=== PATIENT | female | born 1960 | race Caucasian/White ===

== ENCOUNTER 2019-01-08 10:50 | Outpatient (CLI) | payer OTHER | END 2019-01-08 23:59 | disposition home or self-care (01) | LOC: CFH 10:50 | PROVIDERS: ATTEND Orthopaedic Surgery | DX: S83.231A Complex tear of medial meniscus, current injury, right knee, initial encounter (principal); S83.271A Complex tear of lateral meniscus, current injury, right knee, initial encounter; M22.41 Chondromalacia patellae, right knee; X58.XXXA Exposure to other specified factors, initial encounter; Y93.89 Activity, other specified; Y92.89 Other specified places as the place of occurrence of the external cause; Y99.8 Other external cause status ==

== ENCOUNTER 2020-09-28 20:48 | Emergency (ER) | payer OTHER ==
[~2020-09-28] VITALS: Ht 167.6 cm; Wt 75.3 kg
[~2020-09-28 20:48] MED LIST: LEVO100T5 PO
[2020-09-28] MEDS ORDERED: SODIUM CHLORIDE 0.9% 1,000ML IVBOLUS ONE (21:00)
--- NOTE | 2020-09-28 21:14 | NUR ---
PT BIB EMS FROM HOME WHERE SHE WAS FOUND PASSED OUT AROUND APPROX 10-12 WINE BOTTLES. PT HAD NO MEDICATIONS AROUND HER THAT WERE NOTED BUT APPEARS TO HAVE TAKEN SOME UNKNOWN SUBSTANCE. PUPILS DILATED AND SLUGGISH 6-7. PT HAS HX OF SI AND FAMILY STATES ONE SA YEARS PRIOR. PT PLACED ON SPO2/BP/ECG MONITORING, UA AND LABS OBTAINED AND SENT. HEIDY ERP AT BS FOR EVAL AND POC. FAMILY AT BS. PT BED IN LOWEST, RAILS ENGAGED, CALL LIGHT ON LAP, WCTM.
[2020-09-28 21:15] LABS: BASOPHILS % (AUTO) 0 % (0-1); EOSINOPHILS % (AUTO) 0 % (1-7); LYMPHOCYTES % (AUTO) 41 % (22-44); MEAN CORPUSCULAR HEMOGLOBIN 32.8 pg (27.0-34.8); MEAN PLATELET VOLUME 6.8 fL (7.4-10.4); MONOCYTES % (AUTO) 6 % (2-9); NEUTROPHILS % (AUTO) 53 % (42-75); PLATELET COUNT 385 x10^3/uL (130-400); RED BLOOD COUNT 4.96 x10^6/uL (3.82-5.3); RED CELL DISTRIBUTION WIDTH 12.8 % (9.6-15.2)
[2020-09-28 21:16] LABS: MD NO
[2020-09-28 21:27] LABS: MICROSCOPIC NOT IND
[2020-09-28 21:37] LABS: FREE T4 (FREE THYROXINE) 0.92 ng/dL (0.76-1.46)
[2020-09-28 21:58] LABS: SALICYLATE LEVEL < 1.7 mg/dL (2.8-20.0)
[2020-09-28 22:01] LABS: AMPHETAMINE SCREEN, URINE Negative (Negative); BARBITURATE SCREEN, URINE Negative (Negative); BENZODIAZEPINE SCREEN, URINE Negative (Negative); CANNABINOID SCREEN, URINE Negative (Negative); COCAINE SCREEN, URINE Negative (Negative); METHADONE SCREEN, URINE Negative (Negative); OPIATE SCREEN, URINE Negative (Negative)
[2020-09-28 22:06] LABS: ALANINE AMINOTRANSFERASE 32 U/L (12-78); ALBUMIN 4.1 g/dL (3.4-5.0); ANION GAP 14 mmol/L (5-15); CALCIUM 8.8 mg/dL (8.5-10.1); CHLORIDE 107 mmol/L (98-107); CREATININE 0.78 mg/dL (0.55-1.02)
[2020-09-28 22:08] LABS: ALKALINE PHOSPHATASE 80 U/L (45-117); BILIRUBIN,TOTAL 0.2 mg/dL (0.2-1.0)
--- NOTE | 2020-09-28 22:21 | NUR ---
FAMILY CONTACT INFO: [phone] DAUGHTER [phone]
[2020-09-28] MEDS ORDERED: MAGNESIUM SULFATE 1 GM, THIAMINE 100 MG, FOLIC ACID 1 MG, MVI ADULT 10 ML in SODIUM CHL... IV ONE (22:30)
--- NOTE | 2020-09-28 23:31 | NUR ---
PT RESTING ON GURNEY, NAD, MENTATION IMPROVED, VSS, BED IN LOWEST, RAILS ENGAGED, CALL LIGHT ON LAP, WCTM.
--- NOTE | 2020-09-29 00:42 | NUR ---
PT RESTING ON GURNEY, NAD, APPEARS COMFORTABLE, EYES CLOSED, MONITORING IN PLACE, SITTER IN LINE OF SIGHT, WCTM
--- NOTE | 2020-09-29 01:27 | NUR ---
Patient resting on gurney. Respirations even and unlabored. Sitter outside.
--- NOTE | 2020-09-29 01:57 | NUR ---
pt up and restroom, ambulated with a smooth and steady gait, nad, appears comfortable, resting on gurney in gown, provided additional warm blankets for comfort, sitter in line of sight, wctm.
--- NOTE | 2020-09-29 03:18 | NUR ---
REPORT GIVEN TO SKYE ROJAS
--- NOTE | 2020-09-29 03:35 | NUR ---
pt moved to new room, agreeable with poc, provided water per request. monitors in place. no other needs at this time. in line of sight of sitter
--- NOTE | 2020-09-29 05:22 | NUR ---
pt talked to this rn about stress at home including trouble with son, pt stated that 6 months ago she started drinking a lot and lead up to this point, pt requested this rn to call [facility]ilo to cancel pilates appointment, appointments canceled. no other needs at this time, in line of sight of chevy
--- NOTE | 2020-09-29 07:01 | NUR ---
BEDSIDE REPORT FROM SKYE ROJAS
--- NOTE | 2020-09-29 11:50 | NUR ---
TASK RN: PT RESTING COMFORTABLY ON HOSPITAL BED. RESP EVEN AND UNLABORED. PT IN DIRECT SIGHT OF SITTER. ROOM SECURE.
--- NOTE | 2020-09-29 12:15 | NUR ---
TASK RN: DIET TRAY DELIVERED TO PT. PT APPRECIATIVE. PT IN DIRECT SIGHT OF TATIANATER.
--- NOTE | 2020-09-29 13:47 | NUR ---
PSYCH CONE TREATER BEDSIDE
--- NOTE | 2020-09-29 16:07 | NUR ---
PT RESTING ON HOSPITAL BED, WATCHING TV. NAD. VSS. PT PROVIDED WATER AT THEIR REQUEST. SITTER OUTSIDE ROOM.
[2020-09-29 17:59] VITALS: BP 143/86
--- NOTE | 2020-09-29 17:59 | NUR ---
PT COVID SWAB WALKED TO THE LAB.
--- NOTE | 2020-09-29 18:47 | NUR ---
REPORT FROM TALON RN, PT CARE TRANSFERRED AT THIS TIME. PT RESTING ON GURNEY, NAD, APPEARS COMFORTABLE, DAUGHTER AT BS. AWAITING PT COVID SWAB RESULTS THEN TO GO TO [facility]. ROOM LAM LAMAS IN LINE OF SIGHT, WCTM.
--- NOTE | 2020-09-29 19:28 | NUR ---
REPORT CALLED TO BHU BY RN. HENRY CHEUNG BHU CHARGE TOOK REPORT. PT READY TO TRANSFER TO FLOOR. WCTM UNTIL TRANSPORT
[2020-09-29] MEDS ORDERED: TRAZODONE 50MG TABLET PO PRN (21:00)
[2020-09-29] MEDS ORDERED: MELATONIN 5 MG TABLET PO SCH (21:00)
[2020-09-30] MEDS ORDERED: MELA5TAB14 PO (13:21)
[2020-09-30] MEDS ORDERED: ESCI10TA97 PO (13:21)
== END 2020-09-29 14:35 ==
LOC: ED 22:55 → UNDOADMOB 23:14 → EDIP 23:14 → ED 09-29 14:35 → EDIP 09-29 17:58
DX: T51.8X2A Toxic effect of other alcohols, intentional self-harm, initial encounter (principal); Z20.822 Contact with and (suspected) exposure to COVID-19; R41.82 Altered mental status, unspecified; R45.850 Homicidal ideations; G31.2 Degeneration of nervous system due to alcohol; R25.8 Other abnormal involuntary movements; R06.89 Other abnormalities of breathing; R94.31 Abnormal electrocardiogram [ECG] [EKG]; Y92.89 Other specified places as the place of occurrence of the external cause
CPT/HCPCS: 36415; 70450; 71045; 80053; 80299; 80307; 80320; 80329; 81003; 82140; 84439; 84443; 85025; 87426; 93005; 96361; 96365; 96366; 99285; J3411; J3475; J7030; G0480

== ENCOUNTER 2020-09-29 19:53 | Inpatient (IN) | payer OTHER ==
[~2020-09-29] VITALS: Ht 167.6 cm; Wt 73.9 kg
[2020-09-29 19:50] VITALS: BP 158/96
[2020-09-29] MEDS ORDERED: POLYETHYLENE GLYCOL 17 GM PACKET PO PRN (20:30)
[2020-09-29] MEDS ORDERED: TRAZODONE 50MG TABLET PO PRN (20:30)
[2020-09-29] MEDS ORDERED: ONDANSETRON ODT 4 MG PO PRN (20:30)
[2020-09-29] MEDS ORDERED: BISACODYL 10 MG SUPP PR PRN (20:30)
[2020-09-29] MEDS ORDERED: MELATONIN 5 MG TABLET PO PRN (20:30)
[2020-09-29] MEDS ORDERED: DOCUSATE 100 MG CAPSULE PO PRN (20:30)
[2020-09-29] MEDS ORDERED: ACETAMINOPHEN 325 MG TABLET PO PRN (20:30)
[2020-09-29] MEDS ORDERED: LORazepam 1MG TABLET PO PRN (20:30)
[2020-09-29] MEDS ORDERED: PLEASE ENTER HEIGHT AND WEIGHT MC SCH (21:00)
[2020-09-30 07:29] LABS: CHOLESTEROL, TOTAL 242 mg/dL (140-239); TRIGLYCERIDES 116 mg/dL (50-200); VLDL CHOLESTEROL 23 mg/dL (0-25)
[2020-09-30 07:32] LABS: CHOL/HDL RATIO 2.4; HDL CHOL % 42 % (28-40); HDL CHOLESTEROL (DIRECT) 102 mg/dL (40-60); LDL CHOLESTEROL,CALCULATED 117 mg/dL (54-169); LDL/HDL RATIO 1.1 (0.5-3.0)
[2020-09-30 07:37] VITALS: BP 144/85
[2020-09-30] MEDS ORDERED: THIAMINE 100MG TABLET PO SCH (09:00)
[2020-09-30] MEDS ORDERED: FOLIC ACID 1 MG TABLET PO SCH (09:00)
[2020-09-30] MEDS ORDERED: ESCITALOPRAM 10MG TABLET PO SCH (13:00)
[2020-09-30] MEDS ORDERED: MELA5TAB14 PO (13:21)
[2020-09-30] MEDS ORDERED: ESCI10TA97 PO (13:21)
== END 2020-09-30 17:45 | disposition home or self-care (01) | DRG 885 ==
LOC: 3E 20:01
PROVIDERS: ADMIT Psychiatry & Neurology Psychosomatic Medicine; ATTEND Psychiatry & Neurology Psychosomatic Medicine
DX: F32.1 Major depressive disorder, single episode, moderate (principal); G47.00 Insomnia, unspecified; Z79.899 Other long term (current) drug therapy
CPT/HCPCS: 36415; 80061; 82607; 84703